=== PATIENT | male | born 2000 | race Hispanic/Latino ===

== ENCOUNTER 2018-10-10 18:53 | Emergency (ER) | payer MEDICAID | END 2018-10-10 19:15 | disposition home or self-care (01) | LOC: EDH 18:53 | DX: J02.9 Acute pharyngitis, unspecified (principal); R50.9 Fever, unspecified; R11.0 Nausea ==

== ENCOUNTER 2018-11-13 16:05 | Emergency (ER) | payer MEDICAID, OTHER | END 2018-11-13 17:42 | disposition home or self-care (01) | LOC: EDH 16:05 | DX: M94.0 Chondrocostal junction syndrome [Tietze] (principal) | CPT/HCPCS: 71045; 93005 ==